=== PATIENT | female | born 1970 | race Caucasian/White ===

== ENCOUNTER 2020-06-25 09:51 | Emergency (ER) | payer OTHER ==
[~2020-06-25] VITALS: Ht 157.5 cm; Wt 63.6 kg
[2020-06-25 10:56] LABS: GLUCOSE,POINT OF CARE 277 MG/DL (70-110)
[2020-06-25 11:57] VITALS: BP 131/76
[2020-06-25] MEDS ORDERED: PANT-31 PO (16:25)
[2020-06-25] MEDS ORDERED: IBUP-2071 PO (16:25)
[2020-06-25] MEDS ORDERED: LOSA50TA37 PO (16:25)
[2020-06-25] MEDS ORDERED: METF-960 PO (16:25)
[2020-06-25 19:27] LABS: GLUCOSE,POINT OF CARE 307 MG/DL (70-110)
== END 2020-06-25 11:58 | disposition home or self-care (01) ==
LOC: EMS 09:56
DX: Z11.1 Encounter for screening for respiratory tuberculosis (principal); E11.9 Type 2 diabetes mellitus without complications; I10 Essential (primary) hypertension
CPT/HCPCS: 71045-TC

== ENCOUNTER 2020-06-25 15:59 | Emergency (ER) | payer OTHER ==
[~2020-06-25] VITALS: Ht 162.6 cm; Wt 61.4 kg
[2020-06-25] MEDS ORDERED: LOSA50TA37 PO (16:25)
[2020-06-25] MEDS ORDERED: METF-960 PO (16:25)
[2020-06-25] MEDS ORDERED: IBUP-2071 PO (16:25)
[2020-06-25] MEDS ORDERED: PANT-31 PO (16:25)
[2020-06-25 16:38] VITALS: BP 133/78
== END 2020-06-25 16:57 | disposition home or self-care (01) ==
LOC: EMS 16:00
DX: I10 Essential (primary) hypertension (principal); E11.9 Type 2 diabetes mellitus without complications; Z76.0 Encounter for issue of repeat prescription